=== PATIENT | female | born 1970 ===

== ENCOUNTER 2021-10-20 09:32 | Outpatient (CLI) | payer BC, SELFPAY ==
--- NOTE | 2021-10-20 10:15 | CRLHL7_ITS ---
For Patients: As a result of the Century Cures Act, medical imaging exams and procedure reports are released immediately into your electronic medical record. You may view this report before your referring provider. If you have questions, please contact your health care provider. INDICATION : Bilateral thyroid nodules TECHNIQUE : Fine needle aspiration of thyroid nodule x2. Comparison : Outside recent report describing 5 centimeter mass in left thyroid lobe and 1.4 centimeter nodule right thyroid lobe. FINDINGS : PROCEDURE: After the informed consent and time-out, multiple fine needle aspirations were obtained from the thyroid nodule within the left thyroid lobe and within the right thyroid. Fine needle performed. 25 gauge needles were used. Lidocaine was used for local anesthesia. The preliminary cytology was adequate for interpretation. Real-time imaging was used for guidance and needle placement. Post imaging ultrasound demonstrates no immediate complication. IMPRESSION : Successful fine needle aspiration of thyroid nodule x2. Dictated by Roberto Pulido MD @ 10/20/2021 11:39:48 AM (Electronically Signed)
== END 2021-10-20 09:33 | disposition home or self-care (01) ==
PROVIDERS: Visit Provider Surgery
DX: E04.1 Nontoxic single thyroid nodule (principal)
CPT/HCPCS: 10005

== ENCOUNTER 2021-12-22 07:20 | Day surgery (SDC) | payer BC, SELFPAY ==
[2021-12-22] VITALS (21 sets, daily range): BP systolic 114–154; BP diastolic 47–92; PULSE 67–82; RESP 12–16; TEMP 35.7–36.4; O2SAT 93–100; BMI 28.0
[2021-12-22] MEDS: LACTATED RINGERS 1000 ML 1,000 ML 100 ML IV (07:30)
[2021-12-22] MEDS: SODIUM CHLORIDE 0.9 % (FLUSH) 10 ML SYRINGE IVF (09:05)
--- NOTE | 2021-12-22 09:05 | SUR.PREOP ---
PT STATES SHE IS POST MENOPAUSALS AND HASN'T HAD PERIOD FOR A LONG TIME [facility] DEFERED
[2021-12-22] MEDS: BUPIVACAINE 0.25% 30 ML INJECTION (11:37)
--- NOTE | 2021-12-22 13:20 | PM.GSPRC ---
Operative Note Date of procedure: 12/22/21 Type of Procedure: Left hemithyroidectomy Procedure Description: After discussing the risks and benefits of the procedure, the patient signed informed consent.? The operative site was marked and the patient was brought to the operating room and placed on the operating table in supine position.? Care was taken to pad the patient's pressure points.?? The patient was then intubated by anesthesia using a Nim tube.? When I arrived in the room, Dr. Gayle had made the incision. Using a retractor, I retracted while Dr. Gayle created sub platysmal flaps superiorly and inferiorly. She then incised the median raphae a between the strap muscles and dissection was taken down to the thyroid gland. A small bleeding branch of an anterior jugular vein was ligated in the process. Once this was done, I retracted the strap muscles laterally well Dr. Gayle retracted the thyroid medially and divided the wispy fibers between the thyroid capsule and the lateral neck tissue with cautery. We encountered a vein at the inferior medial aspect of the thyroid and again I provided retraction while Dr. Gayle dissected this out, ligated doubly between clips and ties and divided the vessel. Attention was then turned along the lateral aspect of the thyroid toward the superior pole. Dr. Gayle retracted the superior pole inferiorly while I provided lateral retraction. She then sequentially dissected out the superior pole vessels and again these were doubly ligated with 2-0 silk ties and clips. Once the superior pole was free, we again took the dissection inferolaterally. The nodule was noted. This was carefully dissected from the surrounding tissue with a combination of cautery and blunt dissection taking down the wispy fibers connecting it to the surrounding tissue. Dr. Gayle dissected out the inferior pole vessels and again doubly ligated these with clips and ties before dividing. Once this was done, I then retracted the thyroid anteromedially while Dr. Gayle began the posterior dissection. With this care was taken to stay on the thyroid gland itself. Two fatty areas of tissue in the normal location of the parathyroid glands were preserved and dissected free from the thyroid and left in place. Once the thyroid was reflected anteriorly the recurrent laryngeal nerve was visible along its course. This was confirmed with the Nim monitor. With care to avoid the nerve, Dr. Gayle then carefully dissected the thyroid from the trachea, using cautery to divide the ligament of Mcmahon and ligating small vessels with ties. I was then able to deliver the thyroid completely from the incision and Dr. Gayle completed the tracheal dissection to the isthmus. She then divided the thyroid at the isthmus and sent this to pathology. Hemostasis appeared excellent at this point. While Dr. Gayle was marking the specimen, I did have Anesthesia performed 2 Valsalva maneuvers and did not see any bleeding. At this point I turned over the case to Dr. Gayle to check 1 more time for bleeding as well as close the incision. ? Findings: Large left thyroid nodule. Anesthesia: GETA Surgeon: Randi Gayle MD Co-Surgeon: Alison Shahid MD Estimated blood loss (mL): 15 Condition: stable Disposition: PACU
--- NOTE | 2021-12-22 13:49 | W.ANESCHARGE ---
Anesthesia Charges Start Date/Time Anesthesia Start Date: 12/22/21 Anesthesia Start Time: 10:20 Stop Date/Time Anesthesia Stop Date: 12/22/21 Anesthesia Stop Time: 13:47 Summary Emergency: No
--- NOTE | 2021-12-22 14:01 | W.ANESCHARGE ---
Anesthesia Charges Start Date/Time Anesthesia Start Date: 12/22/21 Anesthesia Start Time: 10:20 Stop Date/Time Anesthesia Stop Date: 12/22/21 Anesthesia Stop Time: 13:47 Summary Emergency: No
[2021-12-22] MEDS: fentaNYL 100 MCG/2 ML inj 50 MCG IVP (14:07)
--- NOTE | 2021-12-22 14:07 | PM.GSPRC ---
Operative Note Date of procedure: 12/22/21 Type of Procedure: left hemithyroidectomy Procedure Description: After discussing the risks and benefits of the procedure, the patient signed informed consent.? The operative site was marked and the patient was brought to the operating room and placed on the operating table in supine position.? Care was taken to pad the patient's pressure points.?? The patient was then intubated] by anesthesia with a NIM tube. A nigel was placed in between her shoulder blades and the neck slightly extended.?? The operative site was then prepped and draped in the usual sterile fashion.? A time-out was then performed. A collar incision was made 2 fingerbreadths above the sternal notch With a scalpel. Dissection was carried down through subcutaneous tissue. Sub platysmal flaps were created superiorly and inferiorly. Dr. Shahid then assisted with retraction while I incised the median raphe between the strap muscles and dissected down to the thyroid gland. During this portion of dissection a branch of the anterior jugular vein was ligated with silk suture. We then retracted the strap muscles laterally and I assisted with retraction of the thyroid medially. Wispy fibers were encountered and cauterized to help dissect off the strap muscles from the underlying thyroid tissue. ? A vein was encountered inferior medial, this was dissected out and doubly ligated with silk ties and clips. We continued our dissection along the lateral aspect of the thyroid towards the superior pole. There Dr. Shahid provided lateral retraction while I carefully dissected out superior pole vessels. These were again doubly ligated with silk ties and clips. Once the superior pole was free we began our dissection inferior. The inferior pole vessels were identified and again carefully dissected out, doubly ligated with silk ties and clips. The nodule was noted posterior on the inferior lobe. With both the superior and inferior lobe free Dr. Shahid retracted the thyroid anterior medially well I began on the posterior dissection. Two fatty areas, found within the normal location of the parathyroid glands were identified and preserved. This was easily dissected away from the thyroid gland. With reflection of the thyroid medially the trachea and esophagus were identified. Within the tracheoesophageal groove a nerve like structure was seen. This was confirmed to be the recurrent laryngeal nerve with the Nim monitor. Once the course of the recurrent laryngeal nerve was identified we took care to avoid any injury and I continued dissection medially, removing the thyroid gland from the underlying trachea. The ligament of Mcmahon was identified and ligated with silk ties. Dr. Shahid was then able to deliver the thyroid completely from the incision and I completed the tracheal dissection to the isthmus.? I then divided the thyroid at the isthmus with the LigaSure. The specimen was tagged with a superior single stitch and double isthmus stitch. This was sent to pathology. Well I marked the specimen Dr. Shahid assessed hemostasis, which was excellent. Two Valsalvas were performed with no bleeding seen. Dr. Shahid then scrubbed out of the case and I completed the procedure. I again inspected for hemostasis, which was excellent. The cavity was gently irrigated with normal saline. And other Valsalva maneuver was performed, with no bleeding seen. The strap muscles were brought back together by closing the overlying fascia with interrupted 2 0 Vicryl suture. The platysma muscle was reapproximated with a running 3-0 Vicryl stitch. The incision was then closed in layers with deep interrupted 3 0 Vicryl and a running 4-0 Monocryl stitch. Sterile dressings of Dermabond, Telfa and Tegaderm were applied. ? The patient was then woken and transported to the recovery area in stable condition. ? The patient tolerated the procedure well. Findings: Large left thyroid nodule Anesthesia: GETA Surgeon: Randi Gayle MD Co-Surgeon: Alison Shahid MD Estimated blood loss (mL): 2 Condition: stable Disposition: PACU
[2021-12-22] MEDS: HYDROmorphone 0.5 mg/0.5 ml inj IVP (14:52)
[2021-12-22] MEDS: LACTATED RINGERS 1000 ML 1,000 ML 125 ML IV ×2 (14:52→21:23)
--- NOTE | 2021-12-22 15:59 | PC.NURSE ---
End of shift-- Pleasant and cooperative, though drowsy patient arrived from PACU. VSS. Pt's temp 96.2F and pt was shivering. Yana hugger applied. She c/o pain in throat which she rated 8 out of 10 and was given Dilaudid once with stated relief. Dressing to front of neck is C/D/I. She denied nausea and was tolerating ice chips. LS CTA. is at bedside and appears loving and supportive. Report to ELLY Purcell.
[2021-12-22] MEDS: ONDANSETRON 2 MG/ML inj 4 MG IVP (17:30)
[2021-12-22] MEDS: ACETAMINOPHEN 325 MG TABLET 650 MG PO (18:55)
[2021-12-22] MEDS: OXYCODONE 5 MG TABLET PO (18:56)
--- NOTE | 2021-12-22 21:52 | PC.NURSE ---
Shift Note [id number]: Pt sleepy this shift, wakes briefly for cares. SpO2 97% while awake but dips to 87% while sleeping. Currently 1L/O2 via NC. Dressing to throat C,D,&I. Pt advanced to full liquids without difficulty. VS WNL and LS COA. Afebrile. Voiding without difficulty. Oxycodone and Tylenol given PRN, pt states she is comfortable at this time.
[2021-12-23] MEDS: OXYCODONE 5 MG TABLET PO ×2 (02:21→09:20)
[2021-12-23 02:22] VITALS: BP 150/85; PULSE 70; RESP 16; TEMP 36.4; O2SAT 98
--- NOTE | 2021-12-23 05:23 | PC.NURSE ---
[id number]: patient up SBA, alert/oriented, pain well controlled with PRN medicaiton see EMAR. tolerating full liquid diet, dressing c/d/i.
[2021-12-23] MEDS: LACTATED RINGERS 1000 ML 1,000 ML 125 ML IV (05:30)
[2021-12-23 07:00] VITALS: BP 167/73; PULSE 77; RESP 16; TEMP 37.2; O2SAT 96
[2021-12-23] MEDS: IBUPROFEN 600 MG TABLET PO (07:39)
[2021-12-23] MEDS: ACETAMINOPHEN 325 MG TABLET 650 MG PO (07:39)
[2021-12-23] MEDS: ATORVASTATIN 10 MG TABLET PO (09:16)
--- NOTE | 2021-12-23 10:20 | P.DS_ITS ---
DS: Providers Provider Date Seen: 12/23/21 Primary care physician: Not a Local Provider Attending Physician on discharge: Randi Gayle MD DS: Summary Hospital Course Hospital Course: Patient underwent a left hemithyroidectomy for suspicious left thyroid nodule. Postoperatively she did well. On postop day 1 she was tolerating regular diet, pain was well controlled with oral medications, she was ambulating and voiding independently. Status at Discharge Functional status at discharge: independent ambulation Overall status at discharge: patient is progressing back to baseline Time Spent with Patient Time attestation: Total time spent providing and/or coordinating discharge services: Exam Narrative: Exam Narrative: General: Alert and oriented, no acute distress HEENT: Neck incision dressing clean/dry/intact. This was removed with Dermabond in place. Appropriate tenderness at the incision site with no swelling appreciated or concern for infection. Const: Vital Signs, click to edit/add: Vital Signs - 24 hr 12/22/21 13:45 12/22/21 13:50 12/22/21 14:05 Temperature 97.0 F L Pulse Rate 80 81 75 Pulse Rate [Right Pulse Oximeter] Respiratory Rate 12 12 12 Blood Pressure 145/86 H 147/74 H 134/92 H Blood Pressure [Ri ght Arm] Pulse Oximetry 95 95 97 Oxygen Delivery Me thod Room Air Room Air Room Air Oxygen Flow Rate 12/22/21 13:55 12/22/21 14:00 12/22/21 14:10 Temperature Pulse Rate 82 81 81 Pulse Rate [Right Pulse Oximeter] Respiratory Rate 14 12 12 Blood Pressure 137/73 145/73 H 138/66 Blood Pressure [Ri ght Arm] Pulse Oximetry 94 93 93 Oxygen Delivery Me thod Room Air Room Air Room Air Oxygen Flow Rate 12/22/21 14:15 12/22/21 14:23 12/22/21 14:25 Temperature 97.1 F L 97.0 F L Pulse Rate 81 75 75 Pulse Rate [Right Pulse Oximeter] Respiratory Rate 12 14 14 Blood Pressure 130/81 123/79 114/81 Blood Pressure [Ri ght Arm] Pulse Oximetry 93 97 98 Oxygen Delivery Me thod Room Air Room Air Room Air Oxygen Flow Rate 12/22/21 14:30 12/22/21 14:45 12/22/21 14:45 Temperature 96.2 F L 97.1 F L 97.1 F L Pulse Rate 72 Pulse Rate [Right Pulse Oximeter] 68 68 Respiratory Rate 16 16 16 Blood Pressure Blood Pressure [Ri ght Arm] 134/86 154/83 H 154/83 H Pulse Oximetry 96 96 Oxygen Delivery Me thod Room Air Room Air Room Air Oxygen Flow Rate 12/22/21 15:00 12/22/21 15:30 12/22/21 16:00 Temperature 96.4 F L 96.6 F L Pulse Rate Pulse Rate [Right Pulse Oximeter] 69 77 68 Respiratory Rate 16 14 16 Blood Pressure Blood Pressure [Ri ght Arm] 141/73 H 116/65 114/58 L Pulse Oximetry 96 98 99 Oxygen Delivery Me thod Room Air Room Air Room Air Oxygen Flow Rate 12/22/21 16:30 12/22/21 18:55 12/22/21 17:30 Temperature 97 F L 96.9 F L 96.8 F L Pulse Rate Pulse Rate [Right Pulse Oximeter] 67 72 Respiratory Rate 16 16 Blood Pressure Blood Pressure [Ri ght Arm] 132/79 150/77 H Pulse Oximetry 96 99 Oxygen Delivery Me thod Nasal Cannula Nasal Cannula Oxygen Flow Rate 1 1 12/22/21 18:30 12/22/21 19:30 12/22/21 20:30 Temperature 97.1 F L Pulse Rate Pulse Rate [Right Pulse Oximeter] 69 77 70 Respiratory Rate 16 16 16 Blood Pressure Blood Pressure [Ri ght Arm] 128/82 132/81 126/47 L Pulse Oximetry 99 98 98 Oxygen Delivery Me thod Nasal Cannula Nasal Cannula Nasal Cannula Oxygen Flow Rate 1 1 1 12/23/21 02:22 Temperature 97.6 F Pulse Rate Pulse Rate [Right Pulse Oximeter] 70 Respiratory Rate 16 Blood Pressure Blood Pressure [Ri ght Arm] 150/85 H Pulse Oximetry 98 Oxygen Delivery Me thod Nasal Cannula Oxygen Flow Rate 0.5 Discharge Plan Discharge Disposition: Home, Self-Care Discharging Surgeon: Randi Gayle Follow-Up Appointment: 2 week follow up, [facility] clinic. Prescriptions: New oxycodone 5 mg tablet 5 mg PO Q6H PRN (Reason: pain) Qty: 5 0RF senna 8.6 mg capsule 8.6 mg PO DAILY PRN (Reason: constipation) Qty: 90 0RF Rx Instructions: Please take stool softeners while on narcotic pain medicine. Stop if having greater than 2 bowel movements per day. ondansetron 4 mg tablet,disintegrating 4 mg PO Q6H Qty: 20 0RF No Action atorvastatin 10 mg tablet 10 mg PO DAILY Label Comments: Take 1 tablet (10 mg) by mouth daily calcipotriene 0.005 % cream 1 applic topical BID Label Comments: Apply topically 2 times daily Use on both hands and elbows. clotrimazole-betamethasone 1-0.05 % cream 1 applic TOPICAL Q12H Label Comments: Apply topically 2 times daily methocarbamol 750 mg tablet 750 mg PO Q8H PRN Label Comments: Take 1 tablet (750 mg) by mouth 3 times daily as needed for muscle spasms scopolamine base 1 mg over 3 days patch 3 day 1 patch transdermal Q72H Label Comments: Place 1 patch onto the skin every 72 hours triamcinolone acetonide 0.1 % cream 1 applic TOPICAL BID Label Comments: Apply topically twice daily to hands for 5-7 days, then twice daily as needed Activity Level: Activity as Tolerated and No strenuous activity Activity Detail: No strenuous activity for the next 2 weeks, this includes lifting greater than 20 lb per day. Okay to walk and participate in daily life activity. Discharge Diet: Regular Patient Instructions: Laxative, Stimulant (By mouth), Oxycodone, Rapid Release (By mouth), Surgical Site Infections (DC), Partial Thyroidectomy (DC) Additional Instructions: Okay to shower. No soaking in a bath or swimming for the next 2 weeks. Forms: [facility] Info Instructions Follow-up: Randi Gayle MD [Staff Physician] - 01/03/22 4:45 pm (Post op Visit with General Surgeon at [facility]) Provider,Not a Local [Primary Care Provider] - Discharge Orders: Discharge Order (Routine); Ordered 12/23/21 Ordered By: Randi Gayle
[2021-12-23] MEDS: ONDANSETRON 2 MG/ML inj 4 MG IVP (11:15)
--- NOTE | 2021-12-23 12:15 | PC.NURSE ---
End of Shift: Patient very pleasant and cooperative. Patient vitally stable, lungs clear, BS WNL, IV removed catheter intact. Patient rates pain at most 7/10 with swallowing, 10mg of oxy was given once in addition to tylenol and ibuprofen. Before leaving the building patient was also given zophran to prevent getting emesis on the drive home. Patient independent in room and urinating. Patient tolerating regular diet. Dressing removed from neck and bandaid applied. Throat incision C/D/I. Patient signed belongings sheet and discharge form. Patient had no further questions regarding discharge information. Patient left the floor at 1154 by wheelchair with and belongings.
== END 2021-12-23 11:54 | disposition home or self-care (01) ==
LOC: MEDSURG 14:04 → SS 15:22 → MEDSURG 15:23
PROVIDERS: Visit Provider Surgery
PROC: (CPT 60220; principal; 2021-11-24 07:30)
DX: E04.2 Nontoxic multinodular goiter (principal)
CPT/HCPCS: 60220; 00320; 88305; 88307; A9270; J0330; J1170; J2250; J2370; J2405; J3010; J3490; J7120